=== PATIENT | male | born 1955 | race Caucasian/White ===

== ENCOUNTER 2020-10-07 11:53 | Outpatient (RCR) | payer OTHER, SELFPAY | END 2020-11-23 23:59 | LOC: IMMUN 11:53 | PROVIDERS: PCP Family Medicine; Referring Provider Family Medicine; Visit Provider Family Medicine | DX: Z23 Encounter for immunization (principal) | CPT/HCPCS: 0001A; 0002A; 91300 ==

== ENCOUNTER 2021-06-15 17:56 | Outpatient (CLI) | payer OTHER, SELFPAY ==
[2021-06-15 18:09] VITALS: BP 112/65; PULSE 73; RESP 16; TEMP 36.7; O2SAT 95; BMI 28.5
[2021-06-15] MEDS: 0.9% Saline Lock 10 ML Syringe IV (18:48)
[2021-06-15 19:33] VITALS: BP 125/76; PULSE 92; RESP 16; TEMP 36.8; O2SAT 96
[2021-06-15 20:20] VITALS: BP 111/76; PULSE 89; RESP 16; TEMP 36.9; O2SAT 94
== END 2021-06-15 20:39 | disposition home or self-care (01) ==
LOC: MS3OUT 17:57 → MS3 17:57
PROVIDERS: PCP Family Medicine; Visit Provider Nurse Practitioner Adult Health
DX: Z23 Encounter for immunization (principal); U07.1 COVID-19
CPT/HCPCS: J7050; M0245; Q0245; A4216

== ENCOUNTER 2024-05-13 09:08 | Day surgery (SDC) | payer OTHER, SELFPAY ==
[2024-05-13] VITALS (8 sets, daily range): BP systolic 94–134; BP diastolic 67–83; PULSE 16–101; RESP 12–18; TEMP 36.2–36.8; O2SAT 94–100; BMI 26.8
--- NOTE | 2024-05-13 09:51 | PCM.PRE.AN2 ---
ASA Classification* ASA Classification ASA Classification: 2 Assessment & Plan Anesthesia* Anesthesia Assessment Anesthesia Assessment: Discussed sedation and/or anesthesia options, risks, benefits, and alternatives with patient/parents/legal guardian/POA. Questions invited. The patient/parents/legal guardian/POA seems to understand and agrees to proceed with anesthesia plan. Reviewed the physical assessment, medical history, allergy history and patient home medications list prior to surgery/procedure/anesthetic and documented any changes. Performed airway and anesthesia risk assessments. 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 When Was Last Pacemaker Check QUESTION #4 FULL TEXT: You/Your Family Experience fever (hyperthermia) with Anesthesia Last Oral Intake Last Oral intake: Last Oral Intake NPO since 00:00 05/13/24 09:39 Meds taken in AM with sips of Yes 05/13/24 09:39 water? Meds patient instructed to see medlist 05/13/24 09:39 take am of surgery PONV PONV - structural steel painter: PONV - structural steel painter Female No 05/12/24 13:48 HX of Motion Sickness No 05/12/24 13:48 HX of N/V After Surgery No 05/12/24 13:48 Non-Smoker Yes 05/12/24 13:48 Duration of Surgery greater No 05/12/24 13:48 than 60 minutes Number of Risk Factors 1 05/12/24 13:48 PONV Score Low Risk 05/12/24 13:48 Height & Weight Height & Weight: Anesthesia: Height & Weight Height 6 ft 05/13/24 09:39 Weight: 89.7 kg 05/13/24 09:39 Body Mass Index (BMI) 26.8 05/13/24 09:39 Respiratory Assessment Respiratory Assessment - structural steel painter: Respiratory Tract Infection Hx - structural steel painter Hx Respiratory Tract Infection No 05/12/24 13:48 STOP Sleep Apnea STOP Sleep Apnea - structural steel painter: STOP Sleep Apnea - structural steel painter Hx Hypertension Yes: CONTROLLED WITH MED 05/12/24 13:48 Hx Sleep Apnea No 05/12/24 13:48 CPAP BIPAP Do you snore loudly (louder No 05/12/24 13:48 than talking or can be heard Do you often feel tired/ No 05/12/24 13:48 fatigued/ sleepy during daytime? Has anyone observed you stop No 05/12/24 13:48 breathing during sleep? STOP Results Negative 05/12/24 13:48 QUESTION #5 FULL TEXT : Do you snore loudly (louder than talking or can be heard through closed doors)? Tobacco Use History Tobacco Use History - structural steel painter: Tobacco Use History - structural steel painter Tobacco Use Smoking Status Never smoker 05/12/24 13:48 Hx Tobacco Use No 05/12/24 13:48 Years Smoking Packs Smoked per Day Smoking Cessation Date was within the last 15 years Hx Smoking Cessation Date Hx Smoking Cessation Counseling Hematologic Medial History Hematologic Hx - structural steel painter: Hematologic Medical Hx - housekeeper manager Hx of Blood Transfusion No 05/12/24 13:48 Hx of Transfusion in last 3 No 05/12/24 13:48 Months Date of Last Transfusion (if within last 3 months) Ever experience any problems No 05/12/24 13:48 with transfusion(s)? Specify any problems Hx of Preganancy in last 3 N/A 05/12/24 13:48 Months Nurse Filling Out Transfusion NBUCHER 05/12/24 13:48 & Questions: Date: 05/12/24 05/12/24 13:48 Time: 13:49 05/12/24 13:48 Patient unable to answer at this time (ie. confused, unrespo /Reproduction History /Reproductive History - structural steel painter: /Reproductive Hx- structural steel painter Hx Now No 05/12/24 13:48 Gestational Age (in weeks): EDC: Hx Hx Para Hx Section SAB No 05/12/24 13:48 PFS Medical History Wears glasses Non-smoker Positive colorectal cancer screening using Cologuard test Hypertension Home Medications ?Medication ?Instructions ?Recorded ?Last Taken ?Type lisinopril 10 1 ea PO DAILY 06/10/21 05/13/24 History mg-hydrochlorothiazide 12.5 mg tablet lovastatin 20 mg tablet 20 mg PO DAILY 06/10/21 Unknown History Allergy/AdvReac Type Severity Reaction Status Date / Time No Known Allergies Allergy Verified 05/13/24 09:39 Family History Brother Heart disease Hypertension Father Heart disease Sister Hypertension Grandmother Cancer lung Surgical History S/P cataract extraction Social History Smoking Status: Never smoker alcohol intake: never Review of Systems (Anesthesia) ROS Narrative System reviewed and no additional complaints, except as documented.
--- NOTE | 2024-05-13 10:19 | HP.PCM_ITS ---
History and Physical Date of Admission: 05/13/24 Intake Vital Signs 06/15/2118:09 04/15/2407:52 Height 6 ft 6 ft Weight: 210 lb BMI 28.5 BP 148/87 H Blood Pressure Location Rt brachial Position Sitting Respiration 18 Intake Visit Reasons: POSITIVE COLOGUARD Chief Complaint: positive cologuard Public Transportation Inspector Required: No Is patient in pain?: No Allergies No Known Allergies Allergy (Verified 04/15/24 07:53) Medications ?Medication ?Instructions ?Recorded ?Confirmed ?Type lisinopril 10 1 ea PO DAILY 06/10/21 04/15/24 History mg-hydrochlorothiazide 12.5 mg tablet lovastatin 20 mg tablet 20 mg PO DAILY 06/10/21 04/15/24 History Have you fallen in the past year?: No PFSH Medical History (Updated 04/15/24 @ 07:51 by Ivelisse Moser) Positive colorectal cancer screening using Cologuard test Hypertension Surgical History (Updated 04/15/24 @ 07:51 by Ivelisse Moser) S/P cataract extraction Family History (Updated 04/15/24 @ 07:52 by Ivelisse Moser) Brother Heart disease HypertensionFather Heart diseaseSister HypertensionGrandmother Cancer lung Social History Smoking Status: Never smoker alcohol intake: never HPI HPI HPI: Patient is a 68-year-old male here for colonoscopy for positive Cologuard. He has last colonoscopy was over 10 years ago and he had a positive Cologuard in 2 022. He has not had able to have a colonoscopy since then. He denies gross blood in his stool or abdominal pain. ROS General General: No weight change, appetite, fatigue, colon cancer, breast cancer or weakness HEENT HEENT: No difficulty swallowing, eye injury, eye surgery, swollen glands or hoarseness Endo Endocrine: No thyroid disease, diabetes mellitus, thyroid cancer, Hair loss, heat intolerance or cold intolerance Skin Skin: No rash or changing moles Breast Breast: No left breast lump, right breast lump, nipple discharge, breast pain, abnormal mammogram, abnormal US or breast enlargement Musc Musculoskeletal: No back problems, arthritis, rheumatoid arthritis, gout or joint pain Cardio Cardiovascular: Yes high blood pressure; No murmur, pacemaker, heart disease, atrial fibrillation, heart attack, heart stent, palpitations, shortness of breat with exertion or chest pain Psych Psychiatric: No depression, anxiety or hearing voices Resp Respiratory: No shortness of breath, No sleep apnea, No cough, No COPD, No asthma, No emphysema and No wheezing Gastro Gastrointestinal: No abdominal pain, No nausea or vomiting, No diarrhea, No constipation, No blood in stool, No acid reflux, No hemorrhoids, No ulcers, No gallbladder problem and No black,tarry stools Fady Hematologic: No blood thinners, No blood disorders, No bleeding, No anemia and No blood clots Neuro Neurologic: No system reviewed and no additional complaints, except as documented, No as per HPI, No abnormal gait, No abnormal hearing, No abnormal movements, No abnormal speech, No behavioral changes, No burning sensations, No confusion, No convulsions, No disequilibrium, No dizziness, No localized weakn ess, No frequent falls, No headache(s), No lack of coordination, No loss of vision, No memory loss, No numbness, No other visual disturbances, No radicular pain, No restless legs, No sensory deficit, No syncope, No tingling, No tremor(s), No weakness and No other Assessment and Plan Assessment and Plan (1) Positive colorectal cancer screening using Cologuard test: Status: Acute Plan: I explained endoscopy in detail to the patient. I explained the risks including but not limited to stroke or heart attack with anesthesia, perforation of the GI tract, bleeding, infection. I explained that any of these could necessitate further emergency surgery. The patient understands and all questions were answered sufficiently. The patient wishes to proceed with procedure. Ascencion Zamudio MD Pager: [facility] [address] [place] [address], [address] [place] [address] Office: I have examined the patient and the H&P has been reviewed. There are no clinical changes since date of exam.
--- NOTE | 2024-05-13 10:49 | OP.CCLET_ITS ---
05/13/2024 Gray Barry Re : Colonoscopy procedure for Ap Barry This procedure was performed on Monday, May 13, 2024. My impressions and recommendations are as follows: Impressions : - The entire examined colon is normal on direct and retroflexion views. - No specimens collected. Recommendations : - Discharge patient to home. - Resume previous diet. - Continue present medications. - Repeat colonoscopy in 10 years for screening purposes. My findings are described in the full procedure note, which is enclosed. If I can be of further assistance, please feel free to contact me at Doctor phone number(s): , Work: . Sincerely, Ascencion Zamudio MD 05/13/2024 10:48:32 AM This report has been signed electronically.
--- NOTE | 2024-05-13 10:49 | OP.COLON_ITS ---
Patient Name: Ap Jefferson Procedure Date: 05/13/2024 10:27 AM Date of : 1955 Age: 68 Procedure: Colonoscopy Indications: Positive Cologuard test Providers: Ascencion Zamudio MD Referring MD: Ascencion Zamudio MD Medicines: Propofol per Anesthesia Patient Profile: This is a 68 year old male. Refer to note in patient chart for documentation of history and physical. Last Colonoscopy: none. The patient's first colonoscopy is today. Complications: No immediate complications. Procedure: Pre-Anesthesia Assessment: - Prior to the procedure, a History and Physical was performed, and patient medications and allergies were reviewed. The patient's tolerance of previous anesthesia was also reviewed. The risks and benefits of the procedure and the sedation options and risks were discussed with the patient. All questions were answered, and informed consent was obtained. Prior Anticoagulants: The patient has taken no anticoagulant or antiplatelet agents. After reviewing the risks and benefits, the patient was deemed in satisfactory condition to undergo the procedure. After I obtained informed consent, the scope was passed under direct vision. Throughout the procedure, the patient's blood pressure, pulse, and oxygen saturations were monitored continuously. The colonoscope was introduced through the anus and advanced to the cecum, identified by appendiceal orifice and ileocecal valve. The colonoscopy was performed without difficulty. The patient tolerated the procedure well. The quality of the bowel preparation was good. The ileocecal valve, appendiceal orifice, and rectum were photographed. Scope In: 10:35:19 AM Scope Withdrawal Time 0 hours 6 minutes 31 seconds Scope Out: 10:46:53 AM Total Procedure Duration Time 0 hours 11 minutes 34 seconds Findings: The entire examined colon appeared normal on direct and retroflexion views. Impression: - The entire examined colon is normal on direct and retroflexion views. - No specimens collected. Recommendation: - Discharge patient to home. - Resume previous diet. - Continue present medications. - Repeat colonoscopy in 10 years for screening purposes. Procedure Code(s): --- Professional --- 17250, Colonoscopy, flexible; diagnostic, including collection of specimen(s) by brushing or washing, when performed (separate procedure) Diagnosis Code(s): --- Professional --- R19.5, Other fecal abnormalities CPT copyright 2021 [employer]. All rights reserved. The codes documented in this report are preliminary and upon charge hand review may be revised to meet current compliance requirements. Ascencion Zamudio MD 05/13/2024 10:48:32 AM This report has been signed electronically. Number of Addenda: 0 Note Initiated On: 05/13/2024 10:27 AM
--- NOTE | 2024-05-13 10:55 | PCM.POST.ANE ---
Anesthesia: Postop Eval I Current Vital Signs Temperature: 97.2 F Pulse Rate: 16 Blood Pressure: 94/71 Respiratory Rate: 16 Pulse Ox: 96 Oxygen Delivery Method: Room Air Assessment Airway patent: Yes Spontaneous unlabored respirations: Yes Mental status: Asleep nausea: No Vomiting: No Anesthesia Complication: No Fluid Hydration Crystalloid volume administer (ml): 40 Total IV fluid infused: 40 Progress Note Anesthesia document: Postop Eval 1 completed: Yes
--- NOTE | 2024-05-13 11:28 | PCM.POSTANE2 ---
Anesthesia Postop Eval I Sum Postop Eval Completion status Anesthesia document: Postop Eval 1 completed: Yes Anesthesia Postop Eval I Summary Anesthesia Postop Eval I Summary: Anesthesia Postop Eval I: Assessment Summary Airway patent Yes 05/13/24 10:57 [email or web address] Spontaneous unlabored Yes 05/13/24 10:57 [email or web address] respirations Mental status Asleep 05/13/24 10:57 [email or web address] nausea No 05/13/24 10:57 [email or web address] Vomiting No 05/13/24 10:57 [email or web address] Anesthesia Postop Eval I: Fluid Summary Crystalloid volume administer 40 05/13/24 10:57 [email or web address] (ml) Colloids volume administered ( ml) Blood Product volume administered (ml) Total IV fluid infused 40 05/13/24 10:57 [email or web address] Anesthesia Postop Eval I: Summary Notes Anesthesia Complication No 05/13/24 10:57 [email or web address] Anesthesia Complication Comment: Post-operative progress note Anesthesia: Postop Eval II Evaluation Mental status: Awake Pain Level: 0 nausea: No Vomiting: No
== END 2024-05-13 11:32 | disposition home or self-care (01) ==
LOC: EN 09:09 → AC 09:10
PROVIDERS: PCP Family Medicine; Referring Provider Surgery; Visit Provider Surgery
PROC: 0DJD8ZZ Inspection of Lower Intestinal Tract, Via Natural or Artificial Opening Endoscopic (ICD-10-PCS; CPT 45378; principal; 2024-05-13 10:10)
DX: R19.5 Other fecal abnormalities (principal); I10 Essential (primary) hypertension
CPT/HCPCS: 45378; A4216; J2405